=== PATIENT | male | born 2000 | race Two or more races ===

== ENCOUNTER 2023-07-15 09:50 | Emergency (ER) | payer SELFPAY ==
[~2023-07-15] VITALS: Ht 185.4 cm; Wt 97.0 kg
[2023-07-15 10:04] VITALS: BP 146/90; PULSE 99; RESP 16; TEMP 98; O2SAT 100
== END 2023-07-15 11:04 | disposition home or self-care (01) ==
LOC: ER 09:50
DX: S39.011A Strain of muscle, fascia and tendon of abdomen, initial encounter (principal); Z98.890 Other specified postprocedural states; X58.XXXA Exposure to other specified factors, initial encounter; Y93.89 Activity, other specified; Y92.89 Other specified places as the place of occurrence of the external cause; Y99.8 Other external cause status
CPT/HCPCS: 99282